=== PATIENT | female | born 1940 | race African-American/Black ===

== ENCOUNTER 2017-05-05 08:50 | Emergency (ER) | payer OTHER ==
[2017-05-05 09:01] VITALS: TEMP 98.4; BMI 28.5
--- NOTE | 2017-05-05 09:14 | PDOC ---
History of Present Illness <Dewey Wesley - Last Filed: 05/05/17 12:55> - General History Source: Patient Exam Limitations: No Limitations - History of Present Illness Initial Comments: 05/05/17 10:07 The patient is a 77-year-old female with a significant past medical history of diabetes, hypertension, hyperlipidemia, hypothyroidism, colon cancer and breast cancer (in remission), who presents to the emergency department with right- sided abdominal pain for one week. She states her abdominal pain is located at both the right upper and right lower quadrants. She describes her abdominal pain as moderate, intermittent, achy, and non-radiating. She states nothing alleviates or worsens the pain. She reports she took Aleve two days ago. She also reports she felt constipated yesterday and took milk of magnesia. She states she last had a bowel movement today. She denies any recent travel or sick contacts. The patient denies chest pain, shortness of breath, headache and dizziness. The patient denies fever, chills, nausea, vomit, diarrhea, and melena. The patient denies dysuria, frequency, urgency and hematuria. Allergies: penicillins and IV dye Past Surgical History: hysterectomy, colon resection, left thyroidectomy, ovarian cyst removal Social History: No toxic habits reported PCP: Dr. Gregorio Patel <Betzaida Tillman - Last Filed: 05/05/17 13:23> - General Chief Complaint: Pain, Acute Stated Complaint: RT SIDE PAIN Time Seen by Provider: 05/05/17 09:13 Past History - Past Medical History Asthma: Yes COPD: No Diabetes: Yes GI Disorders: Yes (COLON CA) HTN: Yes - Surgical History GI Surgery: Yes (COLON RESECTION) - Immunization History Immunization Up to Date: Yes - Suicide/Smoking/Psychosocial Hx Smoking History: Former smoker Have you smoked in the past 12 months: No Number of Cigarettes Smoked Daily: 0 If you are a former smoker, when did you quit?: 1976 Information on smoking cessation initiated: No Hx Alcohol Use: No Drug/Substance Use Hx: No Substance Use Type: None <MaryjaneDewey - Last Filed: 05/05/17 12:55> <Betzaida Tillman - Last Filed: 05/05/17 13:23> - Past Medical History Allergies/Adverse Reactions: Allergies Allergy/AdvReac Type Severity Reaction Status Date / Time Iodinated Contrast- Oral and Allergy Verified 05/05/17 10:02 IV Dye Penicillins Allergy Difficulty Verified 05/05/17 08:57 Breathing iv dye Allergy Intermediate Difficulty Uncoded 05/05/17 08:57 Breathing Home Medications: Ambulatory Orders Budesonide/Formeterol Fumarate [SYMBICORT 160/4.5mcg -] 1 inh PO BID 01/12/16 Levothyroxine [Synthroid -] 50 mcg PO DAILY 01/12/16 Loratadine [Claritin] 10 mg PO DAILY 01/12/16 Losartan/Hydrochlorothiazide [Losartan-Hctz 50-12.5 mg Tab] 1 each PO DAILY Dexlansoprazole [Dexilant] 60 mg PO DAILY 05/05/17 Ezetimibe [Zetia] 10 mg PO HS 05/05/17 Sitagliptin Phos/Metformin HCl [Janumet 50-1,000 mg Tablet] 1 each PO BID Review of Systems - Review of Systems Able to Perform ROS?: Yes Comments:: 05/05/17 10:07 A complete review of 10 out of 10 review of systems is taken and is negative apart from what is previously mentioned below and in the HPI. <Betzaida Tillman - Last Filed: 05/05/17 13:23> *Physical Exam - Vital Signs Last Vital Signs Temp Pulse Resp BP Pulse Ox 98.4 F 71 18 152/74 100 05/05/17 08:57 05/05/17 08:57 05/05/17 08:57 05/05/17 08:57 05/05/17 08:57 <Dewey Wesley - Last Filed: 05/05/17 12:55> - Vital Signs Last Vital Signs Temp Pulse Resp BP Pulse Ox 98.4 F 71 18 152/74 100 05/05/17 08:57 05/05/17 08:57 05/05/17 08:57 05/05/17 08:57 05/05/17 08:57 - Physical Exam Comments: 05/05/17 10:07 Vitals: Triage Vital signs reviewed General Appearance: no acute distress, well nourished well developed, Head: Atraumatic, normocephalic Eyes: Pupils equal reactive round, extraocular movement intact Cardiac: Regular rate and rhythm, no murmurs, no rubs, no gallops, Lungs: Clear to auscultation bilateral, good air movement bilaterally, Abdomen: Soft, nondistended, normal bowel sounds, (+) Right upper and lower quadrants tender to palpation Extremities: Full range of motion to all extremities, no cyanosis, clubbing, or edema Skin: Warm and dry, no rashes or lesions, no petechiae Psych: normal mood, normal affect <Betzaida Tillman - Last Filed: 05/05/17 13:23> ED Treatment Course - LABORATORY CBC & Chemistry Diagram: 05/05/17 09:30 05/05/17 09:30 <Dewey Wesley - Last Filed: 05/05/17 12:55> - LABORATORY CBC & Chemistry Diagram: 05/05/17 09:30 05/05/17 09:30 - ADDITIONAL ORDERS Additional order review: 05/05/17 09:30 RBC 3.92 MCV 90.6 MCHC 34.6 RDW 13.3 MPV 7.4 L D Neutrophils % 53.4 Lymphocytes % 33.8 Monocytes % 11.6 H Eosinophils % 0.4 Basophils % 0.8 - Medications Given in the ED: ED Medications Discontinued Medications Generic Name Dose Route Start Last Admin Trade Name Freq PRN Reason Stop Dose Admin Acetaminophen 1,000 mg 05/05/17 09:43 05/05/17 10:01 Ofirmev Injection - IVPB 05/05/17 09:44 1,000 mg ONCE ONE Administration Sodium Chloride 1,000 ml 05/05/17 09:43 05/05/17 10:01 Normal Saline - IV 05/05/17 09:44 1,000 ml ONCE ONE Administration <Betzaida Tillman - Last Filed: 05/05/17 13:23> Medical Decision Making - Medical Decision Making 77 years old past medical history significant for hypertension and high cholesterol diabetes, colon cancer, breast cancer who presents to the emergency department with 1 week history of colicky right-sided abdominal discomfort Diffuse right-sided abdominal discomfort on examination We'll check labs CT and reevaluate Reevaluation 1pm Belly pain impoved Well-appearing no apparent distress no acute findings on CAT scan or ultrasound. Patient noted to be slightly hyponatremic she was given 1 L normal saline I discussed these findings with Dr. Steven covering for , will arrange for repeat blood work in 1-2 days Given 5 day history of intermittent symptoms with no fever no white count and no findings on ultrasound and CAT scan low suspicious for acute surgical intra- abdominal process. Findings, the need for follow-up, strict return instructions discussed with patient. 05/05/17 13:03 <Dewey Wesley - Last Filed: 05/05/17 12:55> - Medical Decision Making 05/05/17 12:47 Re-evaluation- Patient states she is feeling better. 05/05/17 13:22 Dr. Steven (on behalf of Dr. Gregorio Patel) was paged at 12:58pm, and page was returned at 1:19pm. Case was discussed with Dr. Steven. <Betzaida Tillman - Last Filed: 05/05/17 13:23> *DC/Admit/Observation/Transfer - Discharge Dispostion Admit: No <Dewey Wesley - Last Filed: 05/05/17 12:55> - Attestations Scribe Attestion: 05/05/17 10:07 Documentation prepared by Betzaida Tillman, acting as medical clinic manager for Dewey Wesley MD, /DO. <Betzaida Tillman - Last Filed: 05/05/17 13:23> Diagnosis at time of Disposition: Abdominal pain Qualifiers: Abdominal location: generalized Qualified Code(s): R10.84 - Generalized abdominal pain - Discharge Dispostion Disposition: HOME - Referrals Referrals: Gregorio Patel MD [Primary Care Provider] - - Patient Instructions Printed Discharge Instructions: DI for Abdominal Pain-Adult
[2017-05-05] MEDS ORDERED: ACETAMINOPHEN 1000 MG/100 ML VIAL (NON FORMULARY) IVPB ONE (09:43)
[2017-05-05] MEDS ORDERED: SODIUM CHLORIDE 0.9% 1000 ML INFUS.BAG IV ONE (09:43)
[2017-05-05 09:44] LABS: BASO % 0.8 % (0-2.0); EOS % 0.4 % (0-4.5); HEMATOCRIT 35.5 % (32.4-45.2); HEMOGLOBIN 12.3 GM/dL (10.7-15.3); LYMPH % 33.8 % (8-40); MCH 31.3 pg (25.7-33.7); MCHC 34.6 g/dl (32.0-36.0); MEAN CELL VOLUME 90.6 fl (80-96); MEAN PLT VOLUME 7.4 fl (7.5-11.1); MONO % 11.6 % (3.8-10.2); NEUT % 53.4 % (42.8-82.8); PLATELET COUNT 248 K/MM3 (134-434); RBC 3.92 M/mm3 (3.60-5.2); RDW 13.3 % (11.6-15.6); WHITE BLOOD COUNT 4.5 K/mm3 (4.0-10.0)
[2017-05-05] MEDS ORDERED: ACETAMINOPHEN INJECTION 100 ML IVPB ONE (09:56)
[2017-05-05 10:07] LABS: ALBUMIN 3.9 g/dl (3.4-5.0); ALK PHOS 65 U/L (45-117); ANION GAP 9 (8-16); BILIRUBIN,TOTAL 0.7 mg/dL (0.2-1.0); BLOOD UREA NITROGEN 12 mg/dL (7-18); CALCIUM 8.2 mg/dL (8.5-10.1); CHLORIDE 92 mmol/L (98-107); CO2 28 mmol/L (21-32); CREATININE 0.9 mg/dL (0.55-1.02); GLUCOSE,RANDOM 159 mg/dL (74-106); POTASSIUM 3.9 mmol/L (3.5-5.1); SGOT/AST 26 U/L (15-37); SGPT/ALT 29 U/L (12-78); SODIUM 129 mmol/L (136-145); TOT PROT 7.7 g/dl (6.4-8.2)
[2017-05-05 11:10] LABS: URINE APPEARANCE CLEAR; URINE BILIRUBIN NEGATIVE (NEGATIVE); URINE BLOOD NEGATIVE (NEGATIVE); URINE COLOR LTYELLOW; URINE GLUCOSE (UA) 1+ (NEGATIVE); URINE KETONE NEGATIVE (NEGATIVE); URINE LEUK ESTERASE NEGATIVE (NEGATIVE); URINE NITRITE NEGATIVE (NEGATIVE); URINE PROTEIN NEGATIVE (NEGATIVE); URINE UROBILINOGEN NEGATIVE mg/dL (0.2-1.0)
[2017-05-05 12:50] VITALS: BP 141/68; PULSE 75
== END 2017-05-05 13:13 | disposition home or self-care (01) ==
LOC: JER 08:50
PROC: 3E033NZ Introduction of Analgesics, Hypnotics, Sedatives into Peripheral Vein, Percutaneous Approach (ICD-10-PCS; principal; 2017-05-05)
DX: R10.84 Generalized abdominal pain (principal); I10 Essential (primary) hypertension; E11.9 Type 2 diabetes mellitus without complications; Z79.84 Long term (current) use of oral hypoglycemic drugs; E78.00 Pure hypercholesterolemia, unspecified; Z85.3 Personal history of malignant neoplasm of breast; Z85.038 Personal history of other malignant neoplasm of large intestine
CPT/HCPCS: 36415; 74176-TC; 76705-TC; 80053; 81003; 83605; 85025; 87086; 96374; 99282-25; J0131; J7030

== ENCOUNTER 2017-07-14 06:35 | Day surgery (SDC) | payer OTHER ==
[2017-07-10 17:28] VITALS: BMI 26.6
[2017-07-14] MEDS ORDERED: BUPIVACAINE HCL/PF 0.5% (5MG/ML) 10 ML VIAL ONE (09:25)
--- NOTE | 2017-07-14 09:33 | HP ---
[facility] - Chief Complaint Chief Complaint: Right inguinal hernia/groin pain History of Present Illness: Right inguinal hernia with pain Limitations to Obtaining History: No Limitations - Past Medical History Allergies/Adverse Reactions: Allergies Allergy/AdvReac Type Severity Reaction Status Date / Time Iodinated Contrast- Oral and Allergy Intermediate Difficulty Verified 07/14/17 08:02 IV Dye Breathing Penicillins Allergy Difficulty Verified 07/14/17 08:02 Breathing iv dye Allergy Intermediate Difficulty Uncoded 07/14/17 08:02 Breathing - Current Medications Current Medications: Home Medications Medication Instructions Recorded Budesonide/Formeterol Fumarate 1 inh PO BID 01/12/16 [SYMBICORT 160/4.5mcg -] Levothyroxine [Synthroid -] 50 mcg PO DAILY 01/12/16 Loratadine [Claritin] 10 mg PO DAILY 01/12/16 Losartan/Hydrochlorothiazide 1 each PO DAILY 01/12/16 [Losartan-Hctz 50-12.5 mg Tab] Dexlansoprazole [Dexilant] 60 mg PO DAILY 05/05/17 Ezetimibe [Zetia] 10 mg PO HS 05/05/17 Sitagliptin Phos/Metformin HCl 1 each PO BID 05/05/17 [Janumet 50-1,000 mg Tablet] Satellite Physical Exam - Physical Examination Vital Signs: Vital Signs Period Temp Pulse Resp BP Sys/Jones Pulse Ox Last 24 Hr 98.4 F 76 18 155/74 98 General Appearance: Alert & Oriented x3 Lung: Clear to auscultation Heart: Regular rate & rhythm Abdomen: Soft, Other (Right inguinal hernia) Neurological: Alert, Oriented Satellite Impression/Plan - Impression/Plan Impression: Right inguinal hernia Operative Procedure: Robotic possible open right inguinal hernia repair with mesh Date to be Performed: 07/14/17
[2017-07-14] MEDS ORDERED: PROPOFOL 20 ML ONE (09:43)
[2017-07-14] MEDS ORDERED: fentaNYL CITRATE 250 MCG/5 ML VIAL ONE (09:43)
[2017-07-14] MEDS ORDERED: ROCURONIUM BROMIDE 50 MG/5 ML VIAL ONE (09:43)
[2017-07-14] MEDS ORDERED: CLINDAMYCIN 600 MG PREMIX BAG IVPB ONE (10:00)
[2017-07-14] MEDS ORDERED: LIDOCAINE HCL/PF 2% SDV 5ML VIAL ONE (10:09)
[2017-07-14] MEDS ORDERED: KETOROLAC TROMETHAMINE 30 MG/1 ML VIAL ONE (10:09)
[2017-07-14] MEDS ORDERED: DEXAMETHASONE SOD PHOSPHATE 4 MG/1 ML VIAL ONE (10:09)
[2017-07-14] MEDS ORDERED: CLINDAMYCIN PHOSPHATE 600 MG/4 ML VIAL ONE (10:09)
[2017-07-14] MEDS ORDERED: LABETALOL HCL 5 MG/1 ML (100MG/20 ML VIAL) ONE (11:35)
[2017-07-14] MEDS ORDERED: DESFLURANE GAS 240 ML BOTTLE IH ONE (11:35)
[2017-07-14] MEDS ORDERED: BUPIVACAINE HCL/PF 0.5% (5MG/ML) 10 ML VIAL IJ ONE (11:45)
[2017-07-14] MEDS ORDERED: GLYCOPYRROLATE 0.2 MG/1 ML VIAL ONE ×2 (12:26)
[2017-07-14] MEDS ORDERED: NEOSTIGMINE METHYLSULFATE 0.5 MG/ML - 10 ML MDV ONE (12:26)
[2017-07-14] MEDS ORDERED: PROMETHAZINE HCL 25 MG/1 ML VIAL IVPUSH PRN (12:53)
[2017-07-14] MEDS ORDERED: ONDANSETRON 4 MG/2 ML VIAL IVPUSH PRN ×2 (12:53→19:00)
[2017-07-14] MEDS ORDERED: oxyCODONE HCL 5 MG TABLET PO PRN (12:53)
[2017-07-14] MEDS ORDERED: LACTATED RINGERS SOLUTION 1,000 ML IV SCH (13:00)
--- NOTE | 2017-07-14 13:14 | OP ---
Operative Note - Note: Operative Date: 07/14/17 Pre-Operative Diagnosis: right inguinal hernia Operation: laparoscopy, open repair of right inguinal hernia, lysis of adhesion Surgeon: Drew High Hydraulic Strainer Operator: Steven Huggins Anesthesiologist/BRICK CHIMNEY SUPERVISOR: Seth Gilbert Anesthesia: General Estimated Blood Loss (mls): 20 Drains, Volume Out (mls): 1,000 (deras) Fluid Volume Replaced (mls): 1,300 Operative Report Dictated: Yes
[2017-07-14] MEDS ORDERED: PROMETHAZINE HCL 25 MG/1 ML VIAL ONE (13:48)
[2017-07-14] MEDS ORDERED: ACETAMINOPHEN 325 MG TABLET (FP) PO PRN (14:28)
[2017-07-14] MEDS ORDERED: DEXTROSE 5%-0.45% SALINE 1,000 ML IV SCH (14:30)
[2017-07-14] MEDS ORDERED: PT OWN MED DRAWER 7, Y5N ONE ×3 (17:41→19:23)
[2017-07-14] MEDS: metFORMIN HCL 500 MG TABLET (FP) PO SCH ×2 (17:42→17:52)
[2017-07-14] MEDS: sitaGLIPtin PHOSPHATE 50 MG TABLET PO SCH (17:49)
[2017-07-14] MEDS ORDERED: EZETIMIBE 10 MG TABLET (FP) PO SCH (22:00)
[2017-07-14] MEDS ORDERED: PATIENT'S OWN MEDICATION (NON-FORMULARY) (Sitagliptin Phos/Metformin Hcl [Janumet 50-1,000 PO SCH (22:00)
[2017-07-14] MEDS: BUDESONIDE/FORMETEROL FUMARATE 160/4.5 mcg INHALER IH SCH (22:29)
--- NOTE | 2017-07-14 23:22 | OP ---
DATE OF OPERATION: 07/14/2017 SURGEON: Drew High M.D. DRY KILN LOADER: Olivia Petersen, Steven Huggins M.D. PREOPERATIVE DIAGNOSIS: Right inguinal hernia. POSTOPERATIVE DIAGNOSIS: Right inguinal hernia with intraabdominal adhesions. PROCEDURE: 1. Diagnostic laparoscopy. 2. Open right inguinal hernia repaired with Progrip mesh. 3. Lysis of adhesions. ESTIMATED BLOOD LOSS: 5 mL. DRAINS: None. ANESTHESIA: GET. DRAINS: None. CATHETER: Shaw. REASON FOR THE PROCEDURE: This is a 77-year-old lady who presents to the office with right groin pain in her right inguinal region. On exam, this was consistent with a right inguinal hernia. Because of her pain, she desired repair. The different options were explained, and she wanted to proceed with a robotic, possible open repair of her right inguinal hernia with mesh. The risks and benefits of the procedure were explained, these included bleeding, infection, recurrence of hernia, TN, DVT, PE, injury to surrounding structure including colon, small bowel, bladder, round ligament, uterus, vessel injury, nerve injury, nerve entrapment, hematoma, seroma, wound dehiscence, as some of the complications. She understood and signed informed consent. DESCRIPTION OF PROCEDURE: Patient was placed supine on the operating room table. She underwent endotracheal intubation. A Shaw catheter was inserted. The area was prepped and draped in sterile fashion. Timeout was performed. Because of her previous midline incision from prior operation, an incision was made in the subcostal region and a Veress needle was inserted. It was explained to the patient there was a high chance of converting to an open procedure because of her previous midline incision and likelihood of dense intraabdominal adhesions, which she did understand. Pneumoperitoneum was insufflated and the Veress needle was removed. A 5-mm Optiview trocar was placed under direct visualization. Entrance was obtained to the abdominal cavity. However, there were noted to be dense intraabdominal adhesions. These were carefully attempted to take down with the laparoscope, but there was inadequate visualization of the abdominal cavity. Any further trocars were unable to be placed. Because of this, the laparoscopic robotic approach was aborted. The open right inguinal hernia approach was then performed. The pubis and anterior superior iliac spine were identified and an incision was made over the level of the hernia defect. The skin and subcutaneous tissue were dissected down to the level of Enedina's fascia. Enedina's fascia was divided, and the external oblique was identified. The external oblique was incised and opened. The internal oblique and transversalis fascia were then opened as well. Dissection was performed and there was noted to be a weakness in the entire region of her inguinal canal. There was an area of peritoneum that was noted to be bulging within this canal as well. For further inspection, the peritoneum was opened, and small bowel noted to be present. There were extensive adhesions from bowel to bowel as well as bowel to the overlying peritoneum. These adhesions were carefully lysed and taken down in order to mobilize the bowel towards the abdominal cavity. Once this was performed, the peritoneum was closed using a 2-0 Vicryl suture. Dissection was again further performed. The epigastric vessels were identified as well as the pubis, the shelving edge, and the conjoined tendon. A direct hernia was noted and carefully reduced. Dr. Steven Huggins was consulted intraoperatively for assistance as well at this point. A Progrip mesh was chosen and used to repair the hernia defect. The mesh was secured to the pubis bone, the conjoined tendon and the underlying ligament with 2.0 prolene suture. The mesh was noted to be in good position, and the hernia was noted to be adequately repaired. The external oblique was then sutured using a 0 Vicryl suture. Hemostasis was noted, and the wound was irrigated. The deep subcutaneous tissue was closed using 2-0 Vicryl suture, and the superficial subcutaneous tissue was closed using 3-0 Vicryl suture. The skin was closed in subcutaneous fashion with 4-0 Biosyn suture. Sterile dressings were applied. The patient tolerated the procedure well. The Shaw was removed at the end of the case. Description of the findings were explained to the family as well as the patient, and they understood the description and the event of the procedure. Vee REIS/[id number] KAMILA
[2017-07-15] MEDS: metFORMIN HCL 500 MG TABLET (FP) PO SCH (06:47)
[2017-07-15] MEDS: sitaGLIPtin PHOSPHATE 50 MG TABLET PO SCH (06:47)
[2017-07-15] MEDS ORDERED: LEVOTHYROXINE NA 50 MCG TABLET (FP) PO SCH (07:00)
[2017-07-15 08:47] LABS: BASO % 0.3 % (0-2.0); EOS % 0.4 % (0-4.5); HEMATOCRIT 30.3 % (32.4-45.2); HEMOGLOBIN 10.1 GM/dL (10.7-15.3); LYMPH % 38.2 % (8-40); MCHC 33.5 g/dl (32.0-36.0); MEAN CELL VOLUME 92.5 fl (80-96); MEAN PLT VOLUME 8.6 fl (7.5-11.1); MONO % 14.8 % (3.8-10.2); NEUT % 46.3 % (42.8-82.8); PLATELET COUNT 213 K/MM3 (134-434); RBC 3.28 M/mm3 (3.60-5.2); RDW 13.5 % (11.6-15.6); WHITE BLOOD COUNT 4.9 K/mm3 (4.0-10.0)
[2017-07-15] MEDS ORDERED: LOSARTAN 50MG/HCTZ 12.5MG 1 TAB (FP) PO SCH (10:00)
[2017-07-15] MEDS ORDERED: LORATADINE 10 MG TABLET PO SCH (10:00)
[2017-07-15] MEDS ORDERED: PANTOPRAZOLE 40 MG TABLET (FP) PO SCH (10:00)
--- NOTE | 2017-07-15 10:25 | PN ---
Progress Note (short form) - Note Progress Note: POD 1 Pain controlled Tolerating diet Vital Signs Period Temp Pulse Resp BP Sys/Jones Pulse Ox Last 24 Hr 97.6 F-99.4 F 81-103 14-21 127-164/62-86 98-100 Abd soft, ND, wound clean, dry CBC, BMP 07/15/17 07:55 Doing well Discharge home
--- NOTE | 2017-07-15 10:28 | PN ---
Progress Note (short form) - Note Progress Note: 77yo F s/p open Rt inguinal hernia repair, pt sitting comfortably in bed. Pt denies n/v, fever, chills. Tolerating soft diet. Pt urinating well and ambulating. Pt passed flatus last night. Complains of some mild abd pain. Last Vital Signs Temp Pulse Resp BP Pulse Ox 99.4 F 100 H 20 129/67 100 07/15/17 06:50 07/15/17 06:50 07/15/17 06:50 07/15/17 06:50 07/14/17 21:00 CBC, BMP 07/15/17 07:55 PE: General: A&O X 3 Resp: breathing comfortably Abd: soft, nondistended, mild tenderness RLQ, dressings in place with no drainage or erythema. Ext: no edema Problem List - Problems (1) Right inguinal hernia Assessment/Plan: Plan: -advance diet -pain control -DVT ppx -early ambulation -plan to discharge Code(s): K40.90 - UNIL INGUINAL HERNIA, W/O OBST OR GANGR, NOT SPCF RECUR
[2017-07-15 11:03] VITALS: BP 154/74; PULSE 98; TEMP 98.3
[2017-07-15] MEDS: BUDESONIDE/FORMETEROL FUMARATE 160/4.5 mcg INHALER IH SCH (11:19)
== END 2017-07-15 12:06 | disposition home or self-care (01) ==
LOC: JASUSAT 06:35 → JASU-SURG 06:35 → J6S 15:17 → JASUSAT 07-15 12:06
PROVIDERS: ATTEND Surgery
PROC: 0WJG4ZZ Inspection of Peritoneal Cavity, Percutaneous Endoscopic Approach (ICD-10-PCS; 2017-07-14)
PROC: 0YU50JZ Supplement Right Inguinal Region with Synthetic Substitute, Open Approach (ICD-10-PCS; principal; 2017-07-14 09:00)
DX: K40.90 Unilateral inguinal hernia, without obstruction or gangrene, not specified as recurrent (principal); Z53.31 Laparoscopic surgical procedure converted to open procedure
CPT/HCPCS: 36415; 74018-TC-FY; 82962; 85025; 94010; 94760

== ENCOUNTER 2020-07-12 21:04 | Emergency (ER) | payer OTHER ==
[2020-07-12 21:30] VITALS: BP 172/82; PULSE 72; TEMP 98.4; BMI 28.8
[2020-07-12] MEDS ORDERED: ACETAMINOPHEN 1000 MG/100 ML VIAL (NON FORMULARY) IVPB ONE (22:13)
[2020-07-12] MEDS ORDERED: ACETAMINOPHEN INJECTION 100 ML IVPB ONE (22:29)
[2020-07-12 22:34] LABS: BASO % 1.1 % (0-2.0); EOS % 0.2 % (0-4.5); HEMATOCRIT 34.9 % (32.4-45.2); HEMOGLOBIN 11.9 GM/dL (10.7-15.3); LYMPH % 22.4 % (8-40); MCH 30.6 pg (25.7-33.7); MCHC 34.2 g/dl (32.0-36.0); MEAN CELL VOLUME 89.4 fl (80-96); MEAN PLT VOLUME 8.3 fl (7.5-11.1); NEUT % 67.3 % (42.8-82.8); PLATELET COUNT 264 K/MM3 (134-434); RDW 13.9 % (11.6-15.6); WHITE BLOOD COUNT 5.2 K/mm3 (4.0-10.0)
[2020-07-12 22:44] LABS: INR 0.97 (0.83-1.09); PROTHROMBIN TIME (PATIENT) 11.9 SEC (9.7-13.0)
[2020-07-12 22:46] LABS: ACTIVATED PTT 26.1 SECONDS (25.2-36.5)
[2020-07-12 23:01] LABS: CALCIUM 8.8 mg/dL (8.5-10.1)
[2020-07-12 23:02] LABS: ALBUMIN 4.2 g/dl (3.4-5.0); BLOOD UREA NITROGEN 13.4 mg/dL (7-18); MAGNESIUM 1.9 mg/dL (1.8-2.4)
[2020-07-12 23:07] LABS: BILIRUBIN,TOTAL 0.4 mg/dL (0.2-1); TOT PROT 7.7 g/dl (6.4-8.2)
[2020-07-12] MEDS ORDERED: morphine CARPU-JECT 4 MG/1 ML DISP.SYRIN IVPUSH ONE (23:16)
[2020-07-12] MEDS ORDERED: SODIUM CHLORIDE 0.9% 500 ML INFUS.BAG IV ONE (23:17)
[2020-07-12] MEDS ORDERED: morphine SULFATE 4 MG/ML VIAL ONE (23:32)
[2020-07-13] MEDS ORDERED: METOCLOPRAMIDE HCL INJECTION 10 MG/2 ML VIAL IVPB ONE (00:20)
[2020-07-13] MEDS ORDERED: METOCLOPRAMIDE HCL INJECTION 10 MG/2 ML VIAL ONE (00:23)
[2020-07-13 01:57] LABS: PH,URINE 6.5 (5.0-8.0); URINE APPEARANCE CLEAR; URINE BILIRUBIN NEGATIVE (NEGATIVE); URINE COLOR YELLOW; URINE GLUCOSE (UA) 2+ (NEGATIVE); URINE KETONE NEGATIVE (NEGATIVE); URINE LEUK ESTERASE NEGATIVE (NEGATIVE); URINE NITRITE NEGATIVE (NEGATIVE); URINE PROTEIN TRACE (NEGATIVE); URINE UROBILINOGEN 0.2 mg/dL (0.2-1.0)
== END 2020-07-13 02:39 | disposition home or self-care (01) ==
LOC: JER 21:04
PROC: 3E033NZ Introduction of Analgesics, Hypnotics, Sedatives into Peripheral Vein, Percutaneous Approach (ICD-10-PCS; principal; 2020-07-12)
PROC: 3E033GC Introduction of Other Therapeutic Substance into Peripheral Vein, Percutaneous Approach (ICD-10-PCS; 2020-07-12)
DX: R10.32 Left lower quadrant pain (principal)
CPT/HCPCS: 36415; 74176-TC; 80053; 81003; 83605; 83735; 85025; 85610; 85730; 99285-25; J0131

== ENCOUNTER 2021-09-26 11:44 | Inpatient (IN) | payer OTHER ==
[2021-09-26 12:08] VITALS: BMI 27.3
[2021-09-26 13:34] LABS: BASO % 0.6 % (0-2.0); HEMATOCRIT 33.5 % (32.4-45.2); HEMOGLOBIN 11.2 GM/dL (10.7-15.3); LYMPH % 10.5 % (8-40); MCHC 33.4 g/dl (32.0-36.0); MEAN CELL VOLUME 86.9 fl (80-96); MEAN PLT VOLUME 6.8 fl (7.5-11.1); NEUT % 78.9 % (42.8-82.8); PLATELET COUNT 557 10^3/uL (134-434); RBC 3.86 M/mm3 (3.60-5.2); RDW 14.4 % (11.6-15.6); WHITE BLOOD COUNT 6.5 K/mm3 (4.0-10.0)
[2021-09-26 13:41] LABS: CALCIUM 9.6 mg/dL (8.5-10.1)
[2021-09-26 13:42] LABS: ALBUMIN 2.9 g/dl (3.4-5.0); BLOOD UREA NITROGEN 22.3 mg/dL (7-18)
[2021-09-26 13:46] LABS: BILIRUBIN,TOTAL 0.6 mg/dL (0.2-1)
[2021-09-26 13:47] LABS: TOT PROT 7.2 g/dl (6.4-8.2)
[2021-09-26 14:01] LABS: LACTIC ACID 2.2 mmol/L (0.4-2.0)
[2021-09-26] MEDS ORDERED: SODIUM CHLORIDE 0.9% 500 ML INFUS.BAG IV ONE (18:28)
[2021-09-26 18:48] LABS: BF WBC & OTHER NUCLEATED CELLS 2705 /mm3
[2021-09-26 18:49] LABS: BODY FLUID MACROPHAGES 4 %; BODY FLUID MESOTHELIAL 1 %; BODY FLUID MONOCYTE 6 %
[2021-09-26 22:01] LABS: INR 1.31 (0.83-1.09); PROTHROMBIN TIME (PATIENT) 15.1 SEC (9.7-13.0)
[2021-09-26] MEDS: HEPARIN NA (PORCINE) 5,000 UNITS/ML 1ML VIAL SQ SCH (23:07)
[2021-09-26] MEDS: DOCUSATE SODIUM 100 MG CAPSULE (FP) PO SCH (23:07)
[2021-09-26] MEDS: EZETIMIBE 10 MG TABLET (FP) PO SCH (23:07)
[2021-09-27] MEDS: LEVOTHYROXINE NA 50 MCG TABLET (FP) PO SCH (06:12)
[2021-09-27] MEDS: DOCUSATE SODIUM 100 MG CAPSULE (FP) PO SCH ×3 (06:12→21:33)
[2021-09-27] MEDS: LOSARTAN 50MG/HCTZ 12.5MG 1 TAB PO SCH (10:34)
[2021-09-27] MEDS: LORATADINE 10 MG TABLET PO SCH (10:34)
[2021-09-27] MEDS: BUDESONIDE/FORMETEROL FUMARATE 160/4.5 mcg INHALER IH SCH ×3 (10:34→21:50)
[2021-09-27] MEDS: HEPARIN NA (PORCINE) 5,000 UNITS/ML 1ML VIAL SQ SCH ×2 (10:35→21:32)
[2021-09-27 12:15] LABS: BASO % 0.4 % (0-2.0); EOS % 0.1 % (0-4.5); HEMATOCRIT 31.3 % (32.4-45.2); HEMOGLOBIN 10.7 GM/dL (10.7-15.3); LYMPH % 11.2 % (8-40); MCH 29.7 pg (25.7-33.7); MCHC 34.2 g/dl (32.0-36.0); MEAN CELL VOLUME 86.8 fl (80-96); MEAN PLT VOLUME 6.4 fl (7.5-11.1); MONO % 10.5 % (3.8-10.2); NEUT % 77.8 % (42.8-82.8); PLATELET COUNT 526 10^3/uL (134-434); WHITE BLOOD COUNT 6.8 K/mm3 (4.0-10.0)
[2021-09-27 12:52] LABS: CALCIUM 9.3 mg/dL (8.5-10.1)
[2021-09-27 12:53] LABS: ALBUMIN 2.8 g/dl (3.4-5.0); BLOOD UREA NITROGEN 16.9 mg/dL (7-18)
[2021-09-27 12:56] LABS: CREATININE 0.7 mg/dL (0.55-1.3)
[2021-09-27 12:57] LABS: BILIRUBIN,TOTAL 0.8 mg/dL (0.2-1)
[2021-09-27 12:58] LABS: TOT PROT 6.5 g/dl (6.4-8.2)
[2021-09-27] MEDS ORDERED: PANTOPRAZOLE 40 MG TABLET PO ONE (17:31)
[2021-09-27] MEDS: EZETIMIBE 10 MG TABLET (FP) PO SCH (21:33)
[2021-09-28] MEDS: DOCUSATE SODIUM 100 MG CAPSULE (FP) PO SCH ×3 (06:21→21:37)
[2021-09-28] MEDS: LEVOTHYROXINE NA 50 MCG TABLET (FP) PO SCH (06:21)
[2021-09-28 08:33] LABS: BASO % 0.6 % (0-2.0); EOS % 0.2 % (0-4.5); HEMATOCRIT 31.3 % (32.4-45.2); HEMOGLOBIN 10.6 GM/dL (10.7-15.3); LYMPH % 17.1 % (8-40); MCH 29.3 pg (25.7-33.7); MCHC 33.8 g/dl (32.0-36.0); MEAN CELL VOLUME 86.6 fl (80-96); MEAN PLT VOLUME 6.8 fl (7.5-11.1); MONO % 12.8 % (3.8-10.2); NEUT % 69.3 % (42.8-82.8); PLATELET COUNT 484 10^3/uL (134-434); RBC 3.61 M/mm3 (3.60-5.2); RDW 14.2 % (11.6-15.6); WHITE BLOOD COUNT 6.7 K/mm3 (4.0-10.0)
[2021-09-28 08:44] LABS: CALCIUM 8.6 mg/dL (8.5-10.1)
[2021-09-28 08:45] LABS: ALBUMIN 2.5 g/dl (3.4-5.0); BLOOD UREA NITROGEN 15.2 mg/dL (7-18)
[2021-09-28 08:48] LABS: CREATININE 0.7 mg/dL (0.55-1.3)
[2021-09-28 08:49] LABS: BILIRUBIN,TOTAL 0.7 mg/dL (0.2-1)
[2021-09-28 08:53] LABS: N-TERMINAL BNP 197.6 pg/ml (5-450)
[2021-09-28] MEDS: LOSARTAN 50MG/HCTZ 12.5MG 1 TAB PO SCH (09:45)
[2021-09-28] MEDS: HEPARIN NA (PORCINE) 5,000 UNITS/ML 1ML VIAL SQ SCH ×2 (09:46→21:28)
[2021-09-28] MEDS: LORATADINE 10 MG TABLET PO SCH (09:49)
[2021-09-28] MEDS: BUDESONIDE/FORMETEROL FUMARATE 160/4.5 mcg INHALER IH SCH ×2 (09:50→21:32)
[2021-09-28] MEDS: ACETAMINOPHEN 325 MG TABLET (FP) PO PRN ×2 (10:23→21:29)
[2021-09-28] MEDS: INSULIN SLIDING SCALE (NOVOLOG) 1 VIAL SQ SCH ×2 (16:30→21:55)
[2021-09-28] MEDS: EZETIMIBE 10 MG TABLET (FP) PO SCH (21:28)
[2021-09-29] MEDS: DOCUSATE SODIUM 100 MG CAPSULE (FP) PO SCH ×3 (05:34→21:41)
[2021-09-29] MEDS: INSULIN SLIDING SCALE (NOVOLOG) 1 VIAL SQ SCH ×4 (06:39→21:59)
[2021-09-29] MEDS: LEVOTHYROXINE NA 50 MCG TABLET (FP) PO SCH (06:44)
[2021-09-29 07:00] LABS: BASO % 0.4 % (0-2.0); EOS % 0.5 % (0-4.5); HEMATOCRIT 29.8 % (32.4-45.2); HEMOGLOBIN 10.1 GM/dL (10.7-15.3); LYMPH % 20.9 % (8-40); MCH 29.1 pg (25.7-33.7); MCHC 33.7 g/dl (32.0-36.0); MEAN CELL VOLUME 86.4 fl (80-96); MEAN PLT VOLUME 6.3 fl (7.5-11.1); MONO % 12.7 % (3.8-10.2); NEUT % 65.5 % (42.8-82.8); PLATELET COUNT 425 10^3/uL (134-434); RBC 3.45 M/mm3 (3.60-5.2); RDW 14.4 % (11.6-15.6)
[2021-09-29 07:30] LABS: CALCIUM 8.6 mg/dL (8.5-10.1)
[2021-09-29 07:31] LABS: ALBUMIN 2.3 g/dl (3.4-5.0); BLOOD UREA NITROGEN 12.6 mg/dL (7-18)
[2021-09-29 07:34] LABS: CREATININE 0.7 mg/dL (0.55-1.3)
[2021-09-29 07:35] LABS: BILIRUBIN,TOTAL 0.7 mg/dL (0.2-1)
[2021-09-29 07:36] LABS: TOT PROT 5.7 g/dl (6.4-8.2)
[2021-09-29] MEDS: LOSARTAN 50MG/HCTZ 12.5MG 1 TAB PO SCH (09:37)
[2021-09-29] MEDS: HEPARIN NA (PORCINE) 5,000 UNITS/ML 1ML VIAL SQ SCH ×2 (09:37→21:42)
[2021-09-29] MEDS: ACETAMINOPHEN 325 MG TABLET (FP) PO PRN (09:38)
[2021-09-29] MEDS: LORATADINE 10 MG TABLET PO SCH (09:38)
[2021-09-29] MEDS: BUDESONIDE/FORMETEROL FUMARATE 160/4.5 mcg INHALER IH SCH ×2 (09:38→21:41)
[2021-09-29] MEDS: EZETIMIBE 10 MG TABLET (FP) PO SCH (21:41)
[2021-09-30 00:11] LABS: BODY FLUID ALBUMIN 3.1 g/dL (Not Estab.)
[2021-09-30] MEDS: DOCUSATE SODIUM 100 MG CAPSULE (FP) PO SCH ×3 (06:17→21:40)
[2021-09-30] MEDS: LEVOTHYROXINE NA 50 MCG TABLET (FP) PO SCH (06:17)
[2021-09-30] MEDS: INSULIN SLIDING SCALE (NOVOLOG) 1 VIAL SQ SCH ×4 (06:35→22:10)
[2021-09-30] MEDS: LORATADINE 10 MG TABLET PO SCH (10:28)
[2021-09-30] MEDS: BUDESONIDE/FORMETEROL FUMARATE 160/4.5 mcg INHALER IH SCH ×2 (10:28→21:43)
[2021-09-30] MEDS: LOSARTAN 50MG/HCTZ 12.5MG 1 TAB PO SCH (10:28)
[2021-09-30] MEDS: HEPARIN NA (PORCINE) 5,000 UNITS/ML 1ML VIAL SQ SCH ×2 (10:29→21:41)
[2021-09-30] MEDS: ACETAMINOPHEN 325 MG TABLET (FP) PO PRN ×2 (15:50→21:40)
[2021-09-30] MEDS: EZETIMIBE 10 MG TABLET (FP) PO SCH (21:40)
[2021-10-01] MEDS: LEVOTHYROXINE NA 50 MCG TABLET (FP) PO SCH (06:15)
[2021-10-01] MEDS: DOCUSATE SODIUM 100 MG CAPSULE (FP) PO SCH ×3 (06:15→21:51)
[2021-10-01] MEDS: INSULIN SLIDING SCALE (NOVOLOG) 1 VIAL SQ SCH ×4 (06:46→21:55)
[2021-10-01] MEDS: LOSARTAN 50MG/HCTZ 12.5MG 1 TAB PO SCH (09:15)
[2021-10-01] MEDS: LORATADINE 10 MG TABLET PO SCH (09:15)
[2021-10-01] MEDS: HEPARIN NA (PORCINE) 5,000 UNITS/ML 1ML VIAL SQ SCH ×2 (09:16→21:52)
[2021-10-01] MEDS: BUDESONIDE/FORMETEROL FUMARATE 160/4.5 mcg INHALER IH SCH ×2 (09:16→21:56)
[2021-10-01 14:01] LABS: HEMATOCRIT 32.2 % (32.4-45.2); HEMOGLOBIN 10.9 GM/dL (10.7-15.3); MCH 29.3 pg (25.7-33.7); MCHC 33.9 g/dl (32.0-36.0); MEAN CELL VOLUME 86.5 fl (80-96); MEAN PLT VOLUME 6.8 fl (7.5-11.1); PLATELET COUNT 439 10^3/uL (134-434); RBC 3.72 M/mm3 (3.60-5.2); RDW 14.3 % (11.6-15.6)
[2021-10-01 14:22] LABS: CALCIUM 8.6 mg/dL (8.5-10.1)
[2021-10-01 14:23] LABS: ALBUMIN 2.1 g/dl (3.4-5.0); BLOOD UREA NITROGEN 9.2 mg/dL (7-18)
[2021-10-01 14:26] LABS: CREATININE 0.6 mg/dL (0.55-1.3)
[2021-10-01 14:27] LABS: BILIRUBIN,TOTAL 0.5 mg/dL (0.2-1); TOT PROT 5.7 g/dl (6.4-8.2)
[2021-10-01] MEDS: EZETIMIBE 10 MG TABLET (FP) PO SCH (21:52)
[2021-10-02] MEDS: INSULIN SLIDING SCALE (NOVOLOG) 1 VIAL SQ SCH ×4 (06:07→22:03)
[2021-10-02] MEDS: LEVOTHYROXINE NA 50 MCG TABLET (FP) PO SCH (06:07)
[2021-10-02] MEDS: DOCUSATE SODIUM 100 MG CAPSULE (FP) PO SCH ×3 (06:07→22:03)
[2021-10-02] MEDS: LOSARTAN 50MG/HCTZ 12.5MG 1 TAB PO SCH (10:55)
[2021-10-02] MEDS: HEPARIN NA (PORCINE) 5,000 UNITS/ML 1ML VIAL SQ SCH ×2 (10:55→22:02)
[2021-10-02] MEDS: BUDESONIDE/FORMETEROL FUMARATE 160/4.5 mcg INHALER IH SCH ×2 (10:55→22:03)
[2021-10-02] MEDS: LORATADINE 10 MG TABLET PO SCH (10:55)
[2021-10-02] MEDS ORDERED: POLYETHYLENE GLYCOL (HEALTHYLAX) 3350 17 GM PACKET PO SCH (11:30)
[2021-10-02] MEDS ORDERED: POLYETHYLENE GLYCOL (HEALTHYLAX) 3350 17 GM PACKET PO ONE (11:30)
[2021-10-02] MEDS ORDERED: MINERAL OIL ENEMA 133 ML ENEMA RC ONE (11:44)
[2021-10-02] MEDS: EZETIMIBE 10 MG TABLET (FP) PO SCH (22:03)
[2021-10-03] MEDS: LEVOTHYROXINE NA 50 MCG TABLET (FP) PO SCH (06:07)
[2021-10-03] MEDS: INSULIN SLIDING SCALE (NOVOLOG) 1 VIAL SQ SCH ×4 (06:07→21:45)
[2021-10-03] MEDS: DOCUSATE SODIUM 100 MG CAPSULE (FP) PO SCH ×3 (06:07→21:43)
[2021-10-03 08:42] LABS: BASO % 0.7 % (0-2.0); EOS % 0.4 % (0-4.5); HEMATOCRIT 28.5 % (32.4-45.2); HEMOGLOBIN 9.6 GM/dL (10.7-15.3); LYMPH % 16.9 % (8-40); MCH 29.3 pg (25.7-33.7); MCHC 33.8 g/dl (32.0-36.0); MEAN CELL VOLUME 86.7 fl (80-96); MEAN PLT VOLUME 6.9 fl (7.5-11.1); MONO % 10.5 % (3.8-10.2); NEUT % 71.5 % (42.8-82.8); PLATELET COUNT 406 10^3/uL (134-434); RBC 3.29 M/mm3 (3.60-5.2); RDW 14.3 % (11.6-15.6); WHITE BLOOD COUNT 6.4 K/mm3 (4.0-10.0)
[2021-10-03 09:21] LABS: BLOOD UREA NITROGEN 9.5 mg/dL (7-18)
[2021-10-03 09:23] LABS: CALCIUM 8.2 mg/dL (8.5-10.1)
[2021-10-03 09:27] LABS: BILIRUBIN,TOTAL 0.5 mg/dL (0.2-1); CREATININE 0.6 mg/dL (0.55-1.3); TOT PROT 5.4 g/dl (6.4-8.2)
[2021-10-03] MEDS: LOSARTAN 50MG/HCTZ 12.5MG 1 TAB PO SCH (09:50)
[2021-10-03] MEDS: HEPARIN NA (PORCINE) 5,000 UNITS/ML 1ML VIAL SQ SCH ×2 (09:50→21:43)
[2021-10-03] MEDS: LORATADINE 10 MG TABLET PO SCH (09:50)
[2021-10-03] MEDS: BUDESONIDE/FORMETEROL FUMARATE 160/4.5 mcg INHALER IH SCH ×2 (09:53→21:48)
[2021-10-03] MEDS: EZETIMIBE 10 MG TABLET (FP) PO SCH (21:48)
[2021-10-04] MEDS: DOCUSATE SODIUM 100 MG CAPSULE (FP) PO SCH ×3 (06:40→21:39)
[2021-10-04] MEDS: LEVOTHYROXINE NA 50 MCG TABLET (FP) PO SCH (06:40)
[2021-10-04] MEDS: INSULIN SLIDING SCALE (NOVOLOG) 1 VIAL SQ SCH ×4 (06:40→21:41)
[2021-10-04] MEDS: LOSARTAN 50MG/HCTZ 12.5MG 1 TAB PO SCH (09:50)
[2021-10-04] MEDS: LORATADINE 10 MG TABLET PO SCH (09:50)
[2021-10-04] MEDS: HEPARIN NA (PORCINE) 5,000 UNITS/ML 1ML VIAL SQ SCH ×2 (09:50→21:39)
[2021-10-04] MEDS: ANASTROZOLE 1 MG TABLET PO SCH (09:50)
[2021-10-04] MEDS: BUDESONIDE/FORMETEROL FUMARATE 160/4.5 mcg INHALER IH SCH ×2 (09:52→21:39)
[2021-10-04] MEDS: EZETIMIBE 10 MG TABLET (FP) PO SCH (21:39)
[2021-10-05] MEDS: LEVOTHYROXINE NA 50 MCG TABLET (FP) PO SCH (06:21)
[2021-10-05] MEDS: DOCUSATE SODIUM 100 MG CAPSULE (FP) PO SCH ×3 (06:21→21:16)
[2021-10-05] MEDS: INSULIN SLIDING SCALE (NOVOLOG) 1 VIAL SQ SCH ×4 (06:22→21:17)
[2021-10-05] MEDS: LORATADINE 10 MG TABLET PO SCH (09:18)
[2021-10-05] MEDS: HEPARIN NA (PORCINE) 5,000 UNITS/ML 1ML VIAL SQ SCH ×2 (09:18→21:16)
[2021-10-05] MEDS: LOSARTAN 50MG/HCTZ 12.5MG 1 TAB PO SCH (09:18)
[2021-10-05] MEDS: ANASTROZOLE 1 MG TABLET PO SCH (09:19)
[2021-10-05] MEDS: BUDESONIDE/FORMETEROL FUMARATE 160/4.5 mcg INHALER IH SCH ×2 (09:20→21:17)
[2021-10-05] MEDS: EZETIMIBE 10 MG TABLET (FP) PO SCH (21:16)
[2021-10-05] MEDS: SENNOSIDES 8.6MG TABLET (FP) PO PRN (21:16)
[2021-10-06] MEDS: DOCUSATE SODIUM 100 MG CAPSULE (FP) PO SCH ×3 (06:30→21:10)
[2021-10-06] MEDS: LEVOTHYROXINE NA 50 MCG TABLET (FP) PO SCH (06:30)
[2021-10-06] MEDS: INSULIN SLIDING SCALE (NOVOLOG) 1 VIAL SQ SCH ×4 (06:32→21:44)
[2021-10-06 07:19] LABS: BASO % 0.6 % (0-2.0); EOS % 0.6 % (0-4.5); HEMATOCRIT 24.9 % (32.4-45.2); HEMOGLOBIN 8.6 GM/dL (10.7-15.3); LYMPH % 17.9 % (8-40); MCH 29.6 pg (25.7-33.7); MCHC 34.4 g/dl (32.0-36.0); MEAN PLT VOLUME 6.7 fl (7.5-11.1); MONO % 12.5 % (3.8-10.2); NEUT % 68.4 % (42.8-82.8); PLATELET COUNT 394 10^3/uL (134-434); RBC 2.89 M/mm3 (3.60-5.2); RDW 14.4 % (11.6-15.6)
[2021-10-06 07:32] LABS: ALBUMIN 1.8 g/dl (3.4-5.0); BLOOD UREA NITROGEN 8.4 mg/dL (7-18); CALCIUM 8.1 mg/dL (8.5-10.1)
[2021-10-06 07:35] LABS: CREATININE 0.5 mg/dL (0.55-1.3)
[2021-10-06 07:36] LABS: BILIRUBIN,TOTAL 0.6 mg/dL (0.2-1)
[2021-10-06 07:37] LABS: TOT PROT 5.2 g/dl (6.4-8.2)
[2021-10-06] MEDS: BUDESONIDE/FORMETEROL FUMARATE 160/4.5 mcg INHALER IH SCH ×2 (09:09→21:10)
[2021-10-06] MEDS: ASPIRIN COATED 81 MG TABLET.EC PO SCH (09:48)
[2021-10-06] MEDS: SENNOSIDES 8.6MG TABLET (FP) PO PRN (09:49)
[2021-10-06] MEDS: LORATADINE 10 MG TABLET PO SCH (09:49)
[2021-10-06] MEDS: LOSARTAN 50MG/HCTZ 12.5MG 1 TAB PO SCH (09:49)
[2021-10-06] MEDS: ANASTROZOLE 1 MG TABLET PO SCH (09:49)
[2021-10-06] MEDS: HEPARIN NA (PORCINE) 5,000 UNITS/ML 1ML VIAL SQ SCH ×2 (09:49→21:09)
[2021-10-06] MEDS: metoPROLOL SUCCINATE 25 MG TAB.SR.24H (FP) PO SCH (09:51)
[2021-10-06] MEDS: EZETIMIBE 10 MG TABLET (FP) PO SCH (21:10)
[2021-10-06] MEDS: ACETAMINOPHEN 325 MG TABLET (FP) PO PRN (21:12)
[2021-10-07] MEDS: DOCUSATE SODIUM 100 MG CAPSULE (FP) PO SCH ×3 (06:50→21:11)
[2021-10-07] MEDS: INSULIN SLIDING SCALE (NOVOLOG) 1 VIAL SQ SCH ×4 (06:51→21:11)
[2021-10-07] MEDS: LEVOTHYROXINE NA 50 MCG TABLET (FP) PO SCH (06:51)
[2021-10-07] MEDS: metoPROLOL SUCCINATE 25 MG TAB.SR.24H (FP) PO SCH (09:23)
[2021-10-07] MEDS: LORATADINE 10 MG TABLET PO SCH (09:23)
[2021-10-07] MEDS: LOSARTAN 50MG/HCTZ 12.5MG 1 TAB PO SCH (09:23)
[2021-10-07] MEDS: BUDESONIDE/FORMETEROL FUMARATE 160/4.5 mcg INHALER IH SCH ×2 (09:23→21:13)
[2021-10-07] MEDS: ASPIRIN COATED 81 MG TABLET.EC PO SCH (09:23)
[2021-10-07] MEDS: ANASTROZOLE 1 MG TABLET PO SCH (09:23)
[2021-10-07] MEDS: HEPARIN NA (PORCINE) 5,000 UNITS/ML 1ML VIAL SQ SCH ×2 (09:24→21:11)
[2021-10-07] MEDS: EZETIMIBE 10 MG TABLET (FP) PO SCH (21:11)
[2021-10-08] MEDS: INSULIN SLIDING SCALE (NOVOLOG) 1 VIAL SQ SCH ×4 (06:23→21:48)
[2021-10-08] MEDS: DOCUSATE SODIUM 100 MG CAPSULE (FP) PO SCH ×3 (06:23→21:27)
[2021-10-08] MEDS: LEVOTHYROXINE NA 50 MCG TABLET (FP) PO SCH (06:23)
[2021-10-08 07:32] LABS: BASO % 0.6 % (0-2.0); EOS % 1.1 % (0-4.5); HEMATOCRIT 25.3 % (32.4-45.2); HEMOGLOBIN 8.8 GM/dL (10.7-15.3); LYMPH % 15.1 % (8-40); MCHC 34.7 g/dl (32.0-36.0); MEAN CELL VOLUME 86.5 fl (80-96); MEAN PLT VOLUME 6.8 fl (7.5-11.1); MONO % 10.1 % (3.8-10.2); NEUT % 73.1 % (42.8-82.8); PLATELET COUNT 483 10^3/uL (134-434); RBC 2.93 M/mm3 (3.60-5.2); RDW 14.1 % (11.6-15.6); WHITE BLOOD COUNT 6.3 K/mm3 (4.0-10.0)
[2021-10-08 07:46] LABS: CALCIUM 8.2 mg/dL (8.5-10.1)
[2021-10-08 07:47] LABS: ALBUMIN 1.8 g/dl (3.4-5.0)
[2021-10-08 07:48] LABS: BLOOD UREA NITROGEN 8.9 mg/dL (7-18)
[2021-10-08 07:51] LABS: CREATININE 0.5 mg/dL (0.55-1.3)
[2021-10-08 07:52] LABS: BILIRUBIN,TOTAL 0.6 mg/dL (0.2-1); TOT PROT 5.5 g/dl (6.4-8.2)
[2021-10-08] MEDS: ANASTROZOLE 1 MG TABLET PO SCH (10:09)
[2021-10-08] MEDS: metoPROLOL SUCCINATE 25 MG TAB.SR.24H (FP) PO SCH (10:09)
[2021-10-08] MEDS: LORATADINE 10 MG TABLET PO SCH (10:10)
[2021-10-08] MEDS: HEPARIN NA (PORCINE) 5,000 UNITS/ML 1ML VIAL SQ SCH ×2 (10:10→21:27)
[2021-10-08] MEDS: LOSARTAN 50MG/HCTZ 12.5MG 1 TAB PO SCH (10:10)
[2021-10-08] MEDS: ASPIRIN COATED 81 MG TABLET.EC PO SCH (10:10)
[2021-10-08] MEDS: BUDESONIDE/FORMETEROL FUMARATE 160/4.5 mcg INHALER IH SCH ×2 (10:12→21:33)
[2021-10-08] MEDS: EZETIMIBE 10 MG TABLET (FP) PO SCH (21:27)
[2021-10-09] MEDS: LEVOTHYROXINE NA 50 MCG TABLET (FP) PO SCH (06:40)
[2021-10-09] MEDS: INSULIN SLIDING SCALE (NOVOLOG) 1 VIAL SQ SCH ×4 (06:40→21:45)
[2021-10-09] MEDS: DOCUSATE SODIUM 100 MG CAPSULE (FP) PO SCH ×3 (06:40→21:45)
[2021-10-09] MEDS: ANASTROZOLE 1 MG TABLET PO SCH (09:19)
[2021-10-09] MEDS: LOSARTAN 50MG/HCTZ 12.5MG 1 TAB PO SCH (09:19)
[2021-10-09] MEDS: LORATADINE 10 MG TABLET PO SCH (09:19)
[2021-10-09] MEDS: metoPROLOL SUCCINATE 25 MG TAB.SR.24H (FP) PO SCH (09:19)
[2021-10-09] MEDS: ASPIRIN COATED 81 MG TABLET.EC PO SCH (09:19)
[2021-10-09] MEDS: HEPARIN NA (PORCINE) 5,000 UNITS/ML 1ML VIAL SQ SCH ×2 (09:19→21:46)
[2021-10-09] MEDS: BUDESONIDE/FORMETEROL FUMARATE 160/4.5 mcg INHALER IH SCH ×2 (09:20→21:48)
[2021-10-09] MEDS ORDERED: MEROPENEM 1 GM VIAL (RESTRICTED TO ID) IVPB ONE (15:39)
[2021-10-09] MEDS: MEROPENEM 1 GM in DEXTROSE 5%-WATER 100 ML IVPB SCH ×2 (15:42→18:41)
[2021-10-09] MEDS: ACETAMINOPHEN 325 MG TABLET (FP) PO PRN (21:45)
[2021-10-09] MEDS: EZETIMIBE 10 MG TABLET (FP) PO SCH (21:45)
[2021-10-10] MEDS: MEROPENEM 1 GM in DEXTROSE 5%-WATER 100 ML IVPB SCH ×3 (02:08→17:07)
[2021-10-10] MEDS: DOCUSATE SODIUM 100 MG CAPSULE (FP) PO SCH ×3 (05:59→21:56)
[2021-10-10] MEDS: LEVOTHYROXINE NA 50 MCG TABLET (FP) PO SCH (05:59)
[2021-10-10] MEDS: INSULIN SLIDING SCALE (NOVOLOG) 1 VIAL SQ SCH ×4 (06:00→22:10)
[2021-10-10] MEDS: ASPIRIN COATED 81 MG TABLET.EC PO SCH (09:20)
[2021-10-10] MEDS: ANASTROZOLE 1 MG TABLET PO SCH (09:20)
[2021-10-10] MEDS: metoPROLOL SUCCINATE 25 MG TAB.SR.24H (FP) PO SCH (09:20)
[2021-10-10] MEDS: LORATADINE 10 MG TABLET PO SCH (09:20)
[2021-10-10] MEDS: LOSARTAN 50MG/HCTZ 12.5MG 1 TAB PO SCH (09:20)
[2021-10-10] MEDS: BUDESONIDE/FORMETEROL FUMARATE 160/4.5 mcg INHALER IH SCH ×2 (09:34→21:57)
[2021-10-10] MEDS: ACETAMINOPHEN 325 MG TABLET (FP) PO PRN (17:07)
[2021-10-10] MEDS ORDERED: DEXTROSE 5%-0.45% SALINE 1,000 ML IV SCH (18:45)
[2021-10-10] MEDS: EZETIMIBE 10 MG TABLET (FP) PO SCH (21:57)
[2021-10-11 00:56] VITALS: RESP 20
[2021-10-11] MEDS: MEROPENEM 1 GM in DEXTROSE 5%-WATER 100 ML IVPB SCH (02:03)
[2021-10-11 04:55] VITALS: BP 117/61; PULSE 107; TEMP 99.3
[2021-10-11 08:22] LABS: EPI CELLS 20 /uL (0-25.1); HYALINE CASTS 0 /uL (0-3.1); URINE APPEARANCE CLEAR; URINE BACTERIA 38 /uL (0-1359); URINE BILIRUBIN NEGATIVE (NEGATIVE); URINE COLOR YELLOW; URINE GLUCOSE (UA) TRACE (NEGATIVE); URINE KETONE TRACE (NEGATIVE); URINE LEUK ESTERASE NEGATIVE (NEGATIVE); URINE NITRITE NEGATIVE (NEGATIVE); URINE PROTEIN 1+ (NEGATIVE); URINE RBC 23 /uL (0-23.9); URINE WBC 12 /uL (0-25.8)
[2021-10-11 12:24] LABS: YEAST NONE SEEN (NEGATIVE)
== END 2021-10-11 05:00 | disposition short-term general hospital (02) | DRG 187 ==
LOC: JER 11:44 → JERBED 14:15 → J6S 21:27 → J4W 09-27 13:56
PROVIDERS: ADMIT Internal Medicine; ATTEND Internal Medicine
PROC: 0W9B30Z Drainage of Left Pleural Cavity with Drainage Device, Percutaneous Approach (ICD-10-PCS; principal; 2021-09-26)
PROC: 0W2BX0Z Change Drainage Device in Left Pleural Cavity, External Approach (ICD-10-PCS; 2021-09-30)
PROC: 0WPBX0Z Removal of Drainage Device from Left Pleural Cavity, External Approach (ICD-10-PCS; 2021-10-07)
DX: J90 Pleural effusion, not elsewhere classified (principal); E87.1 Hypo-osmolality and hyponatremia; J98.11 Atelectasis; E87.2 Acidosis; J44.1 Chronic obstructive pulmonary disease with (acute) exacerbation; I10 Essential (primary) hypertension; C50.911 Malignant neoplasm of unspecified site of right female breast; E87.6 Hypokalemia; E78.5 Hyperlipidemia, unspecified; D64.9 Anemia, unspecified; R22.2 Localized swelling, mass and lump, trunk; I25.10 Atherosclerotic heart disease of native coronary artery without angina pectoris; R00.0 Tachycardia, unspecified; R50.9 Fever, unspecified; E11.9 Type 2 diabetes mellitus without complications; E03.9 Hypothyroidism, unspecified; Z85.038 Personal history of other malignant neoplasm of large intestine
CPT/HCPCS: 32557; 36415; 49423; 71045-TC-FY; 71046-TC-FY; 71250-TC; 80053; 81003; 82042; 82150; 82945; 82962; 83605; 83615; 83880; 83986; 84157; 84443; 84478; 84484; 85025; 85027; 85610; 86300; 86850; 86900; 86901; 87040; 87070; 87075; 87086; 87102; 87116; 87205; 87206; 87210; 88108; 88305-TC; 93005; 93010; 93306-TC; 97116-GP; 97162-GP; 99285-25; C1729; C1769; C1887; C9803-CS; J1644; U0003; U0005

== ENCOUNTER 2022-01-14 14:11 | Inpatient (IN) | payer OTHER ==
[2022-01-14 16:18] LABS: BASO % 0.3 % (0-2.0); EOS % 0.1 % (0-4.5); HEMATOCRIT 20.7 % (32.4-45.2); LYMPH % 7.7 % (8-40); MCH 28.3 pg (25.7-33.7); MCHC 31.9 g/dl (32.0-36.0); MEAN CELL VOLUME 88.6 fl (80-96); MEAN PLT VOLUME 7.3 fl (7.5-11.1); MONO % 3.3 % (3.8-10.2); NEUT % 88.6 % (42.8-82.8); PLATELET COUNT 523 10^3/uL (134-434); RBC 2.33 M/mm3 (3.60-5.2); RDW 20.7 % (11.6-15.6); WHITE BLOOD COUNT 11.5 K/mm3 (4.0-10.0)
[2022-01-14 16:26] LABS: HEMOGLOBIN 6.6 GM/dL (10.7-15.3)
[2022-01-14 16:37] LABS: INR 1.15 (0.83-1.09); PROTHROMBIN TIME (PATIENT) 13.3 SEC (9.7-13.0)
[2022-01-14 16:40] LABS: ACTIVATED PTT 29.1 SECONDS (25.2-36.5)
[2022-01-14 16:42] LABS: CALCIUM 8.7 mg/dL (8.5-10.1)
[2022-01-14 16:43] LABS: ALBUMIN 1.4 g/dl (3.4-5.0); BLOOD UREA NITROGEN 30.4 mg/dL (7-18)
[2022-01-14 16:46] LABS: CREATININE 1.3 mg/dL (0.55-1.3)
[2022-01-14 16:48] LABS: BILIRUBIN,TOTAL 0.4 mg/dL (0.2-1)
[2022-01-14] MEDS: NYSTATIN 100,000 UNIT/GM TOPICAL CREAM 15 GM TUBE TP SCH (23:15)
[2022-01-15 02:56] LABS: BASO % 0.3 % (0-2.0); EOS % 0.1 % (0-4.5); HEMATOCRIT 29.1 % (32.4-45.2); HEMOGLOBIN 9.4 GM/dL (10.7-15.3); LYMPH % 9.3 % (8-40); MCH 28.1 pg (25.7-33.7); MCHC 32.4 g/dl (32.0-36.0); MEAN CELL VOLUME 86.5 fl (80-96); MEAN PLT VOLUME 6.9 fl (7.5-11.1); MONO % 4.7 % (3.8-10.2); NEUT % 85.6 % (42.8-82.8); PLATELET COUNT 396 10^3/uL (134-434); RBC 3.36 M/mm3 (3.60-5.2); WHITE BLOOD COUNT 11.7 K/mm3 (4.0-10.0)
[2022-01-15] MEDS ORDERED: VANCOMYCIN 1 GM/200 ML PREMIX BAG (RESTRICTED TO ID ONLY) IVPB ONE (08:30)
[2022-01-15] MEDS ORDERED: LEVOTHYROXINE NA 50 MCG TABLET (FP) ONE (08:33)
[2022-01-15] MEDS ORDERED: sitaGLIPtin PHOSPHATE 50 MG TABLET ONE (08:33)
[2022-01-15] MEDS ORDERED: VANCOMYCIN/WATER FOR INJ (PEG) 1,000 MG/200 ML BAG IVPB ONE (08:34)
[2022-01-15] MEDS ORDERED: ACETAMINOPHEN INJECTION 100 ML IVPB ONE (08:34)
[2022-01-15] MEDS: sitaGLIPtin PHOSPHATE 50 MG TABLET PO SCH ×2 (08:46→18:53)
[2022-01-15] MEDS: ACETAMINOPHEN 1000 MG/100 ML BAG IVPB PRN ×2 (08:46→15:38)
[2022-01-15] MEDS: metFORMIN HCL 500 MG TABLET (FP) PO SCH ×2 (08:46→18:53)
[2022-01-15] MEDS: LEVOTHYROXINE NA 50 MCG TABLET (FP) PO SCH (08:46)
[2022-01-15] MEDS ORDERED: PATIENT'S OWN MEDICATION (NON-FORMULARY) (Sitagliptin Phos/Metformin Hcl [Janumet 50-1,000 PO SCH (10:00)
[2022-01-15] MEDS ORDERED: JARDIANCE 10 MG PO SCH (10:00)
[2022-01-15] MEDS ORDERED: ANASTROZOLE 1 MG TABLET PO SCH (10:00)
[2022-01-15] MEDS ORDERED: OLMESARTAN HCTZ PO SCH (10:00)
[2022-01-15] MEDS: POTASSIUM CHLORIDE 10 MEQ in SODIUM CHLORIDE 0.45% 1,000 ML IVPB SCH ×3 (10:13→22:54)
[2022-01-15 10:21] LABS: BASO % 0.3 % (0-2.0); EOS % 0.3 % (0-4.5); HEMOGLOBIN 10.6 GM/dL (10.7-15.3); MCH 28.2 pg (25.7-33.7); MCHC 32.1 g/dl (32.0-36.0); MEAN CELL VOLUME 87.7 fl (80-96); MEAN PLT VOLUME 7.1 fl (7.5-11.1); MONO % 3.5 % (3.8-10.2); NEUT % 87.9 % (42.8-82.8); PLATELET COUNT 449 10^3/uL (134-434); RBC 3.76 M/mm3 (3.60-5.2); RDW 16.3 % (11.6-15.6); WHITE BLOOD COUNT 12.5 K/mm3 (4.0-10.0)
[2022-01-15 10:56] LABS: BLOOD UREA NITROGEN 32.2 mg/dL (7-18)
[2022-01-15 11:01] LABS: CREATININE 1.2 mg/dL (0.55-1.3)
[2022-01-15 11:58] LABS: ALBUMIN 1.6 g/dl (3.4-5.0)
[2022-01-15 12:03] LABS: BILIRUBIN,TOTAL 0.6 mg/dL (0.2-1); TOT PROT 6.4 g/dl (6.4-8.2)
[2022-01-15 12:44] LABS: LACTIC ACID 2.7 mmol/L (0.4-2.0)
[2022-01-15] MEDS: PANTOPRAZOLE SODIUM 40 MG VIAL IVPUSH SCH ×2 (14:50→21:21)
[2022-01-15] MEDS: BUDESONIDE/FORMETEROL FUMARATE 160/4.5 mcg INHALER IH SCH ×2 (14:50→22:54)
[2022-01-15] MEDS: NYSTATIN 100,000 UNIT/GM TOPICAL CREAM 15 GM TUBE TP SCH ×2 (14:51→23:17)
[2022-01-15] MEDS ORDERED: ACETAMINOPHEN 325 MG TABLET (FP) PO ONE (19:54)
[2022-01-15] MEDS ORDERED: METOPROLOL TARTRATE 50 MG TABLET (FP) PO ONE (20:00)
[2022-01-15] MEDS ORDERED: ALBUTEROL SO4 0.083% IH SOL 2.5 MG/3 ML VIAL.NEB. NEB PRN (20:09)
[2022-01-15] MEDS: MIRTAZAPINE 15 MG TABLET (FP) PO SCH (21:21)
[2022-01-15] MEDS: COLLAGENASE CLOSTRIDIUM HIST. 30 GRAMS TUBE TP SCH (21:55)
[2022-01-15] MEDS: SILVER SULFADIAZINE 1% TOP CREAM 400 GM JAR TP SCH (21:56)
[2022-01-15] MEDS ORDERED: ROSUVASTATIN CA 10 MG TABLET PO SCH (22:00)
[2022-01-16] MEDS: POTASSIUM CHLORIDE 10 MEQ in SODIUM CHLORIDE 0.45% 1,000 ML IVPB SCH (03:43)
[2022-01-16] MEDS: LEVOTHYROXINE NA 50 MCG TABLET (FP) PO SCH (06:51)
[2022-01-16] MEDS ORDERED: ACETAMINOPHEN 1000 MG/100 ML BAG IVPB PRN (07:17)
[2022-01-16 08:18] LABS: BASO % 0.3 % (0-2.0); EOS % 0.1 % (0-4.5); HEMATOCRIT 26.9 % (32.4-45.2); HEMOGLOBIN 9.1 GM/dL (10.7-15.3); LYMPH % 9.1 % (8-40); MCH 29.4 pg (25.7-33.7); MCHC 33.7 g/dl (32.0-36.0); MEAN CELL VOLUME 87.3 fl (80-96); MEAN PLT VOLUME 6.8 fl (7.5-11.1); MONO % 3.6 % (3.8-10.2); NEUT % 86.9 % (42.8-82.8); PLATELET COUNT 315 10^3/uL (134-434); RBC 3.08 M/mm3 (3.60-5.2); RDW 16.9 % (11.6-15.6); WHITE BLOOD COUNT 10.1 K/mm3 (4.0-10.0)
[2022-01-16 09:00] LABS: BLOOD UREA NITROGEN 29.4 mg/dL (7-18); CALCIUM 7.9 mg/dL (8.5-10.1)
[2022-01-16] MEDS ORDERED: POTASSIUM CHLORIDE 10 MEQ in SODIUM CHLORIDE 0.45% 1,000 ML IVPB SCH (09:00)
[2022-01-16 09:03] LABS: CREATININE 1.1 mg/dL (0.55-1.3)
[2022-01-16 09:05] LABS: BILIRUBIN,TOTAL 0.8 mg/dL (0.2-1)
[2022-01-16 09:15] LABS: ALBUMIN 1.3 g/dl (3.4-5.0)
[2022-01-16] MEDS ORDERED: PATIENT'S OWN MEDICATION (NON-FORMULARY) (Jardiance 10 MG) PO SCH (10:00)
[2022-01-16] MEDS: NYSTATIN 100,000 UNIT/GM TOPICAL CREAM 15 GM TUBE TP SCH ×2 (10:01→22:10)
[2022-01-16] MEDS: ANASTROZOLE 1 MG TABLET PO SCH (10:01)
[2022-01-16] MEDS: COLLAGENASE CLOSTRIDIUM HIST. 30 GRAMS TUBE TP SCH (10:02)
[2022-01-16] MEDS: BUDESONIDE/FORMETEROL FUMARATE 160/4.5 mcg INHALER IH SCH ×2 (10:02→21:56)
[2022-01-16] MEDS: SILVER SULFADIAZINE 1% TOP CREAM 400 GM JAR TP SCH (10:02)
[2022-01-16] MEDS: PANTOPRAZOLE SODIUM 40 MG VIAL IVPUSH SCH ×2 (10:02→21:56)
[2022-01-16] MEDS: sitaGLIPtin PHOSPHATE 50 MG TABLET PO SCH ×2 (10:03→17:12)
[2022-01-16] MEDS: metFORMIN HCL 500 MG TABLET (FP) PO SCH ×2 (10:03→17:12)
[2022-01-16] MEDS: METOPROLOL TARTRATE 50 MG TABLET (FP) PO SCH ×2 (10:39→21:55)
[2022-01-16 12:18] VITALS: BMI 21.5
[2022-01-16] MEDS: AMINO ACIDS/PROTEIN HYDROLYS 30 ML LIQUID.PKT PO SCH (17:13)
[2022-01-16] MEDS: ROSUVASTATIN CA 10 MG TABLET PO SCH (21:55)
[2022-01-16] MEDS: MIRTAZAPINE 15 MG TABLET (FP) PO SCH (21:56)
[2022-01-17] MEDS: LEVOTHYROXINE NA 50 MCG TABLET (FP) PO SCH (06:58)
[2022-01-17 08:12] LABS: BASO % 0.2 % (0-2.0); EOS % 0.1 % (0-4.5); HEMATOCRIT 30.3 % (32.4-45.2); HEMOGLOBIN 9.8 GM/dL (10.7-15.3); LYMPH % 9.5 % (8-40); MCH 28.6 pg (25.7-33.7); MCHC 32.4 g/dl (32.0-36.0); MEAN CELL VOLUME 88.3 fl (80-96); MEAN PLT VOLUME 6.8 fl (7.5-11.1); NEUT % 86.2 % (42.8-82.8); PLATELET COUNT 337 10^3/uL (134-434); RBC 3.43 M/mm3 (3.60-5.2); RDW 17.2 % (11.6-15.6); WHITE BLOOD COUNT 10.9 K/mm3 (4.0-10.0)
[2022-01-17 08:31] LABS: ALBUMIN 1.4 g/dl (3.4-5.0); BLOOD UREA NITROGEN 23.4 mg/dL (7-18); CALCIUM 7.9 mg/dL (8.5-10.1)
[2022-01-17 08:35] LABS: CREATININE 0.7 mg/dL (0.55-1.3)
[2022-01-17 08:36] LABS: BILIRUBIN,TOTAL 0.7 mg/dL (0.2-1); TOT PROT 5.4 g/dl (6.4-8.2)
[2022-01-17] MEDS: AMINO ACIDS/PROTEIN HYDROLYS 30 ML LIQUID.PKT PO SCH ×2 (09:15→18:05)
[2022-01-17] MEDS: PANTOPRAZOLE SODIUM 40 MG VIAL IVPUSH SCH ×2 (09:15→22:51)
[2022-01-17] MEDS: ASCORBIC ACID 500 MG TABLET (FP) PO SCH (09:15)
[2022-01-17] MEDS: METOPROLOL TARTRATE 50 MG TABLET (FP) PO SCH ×2 (09:15→22:51)
[2022-01-17] MEDS: MULTIVITAMINS (DAILY MVI) TABLET (FP) PO SCH (09:15)
[2022-01-17] MEDS: NYSTATIN 100,000 UNIT/GM TOPICAL CREAM 15 GM TUBE TP SCH ×2 (09:16→22:53)
[2022-01-17] MEDS: COLLAGENASE CLOSTRIDIUM HIST. 30 GRAMS TUBE TP SCH (09:17)
[2022-01-17] MEDS: ANASTROZOLE 1 MG TABLET PO SCH (09:49)
[2022-01-17] MEDS: SILVER SULFADIAZINE 1% TOP CREAM 400 GM JAR TP SCH (09:49)
[2022-01-17] MEDS: BUDESONIDE/FORMETEROL FUMARATE 160/4.5 mcg INHALER IH SCH ×2 (13:54→22:54)
[2022-01-17] MEDS: sitaGLIPtin PHOSPHATE 50 MG TABLET PO SCH (18:11)
[2022-01-17] MEDS: metFORMIN HCL 500 MG TABLET (FP) PO SCH (18:15)
[2022-01-17] MEDS: ROSUVASTATIN CA 10 MG TABLET PO SCH (22:51)
[2022-01-17] MEDS: MIRTAZAPINE 15 MG TABLET (FP) PO SCH (22:51)
[2022-01-18] MEDS: sitaGLIPtin PHOSPHATE 50 MG TABLET PO SCH ×2 (06:33→17:24)
[2022-01-18] MEDS: LEVOTHYROXINE NA 50 MCG TABLET (FP) PO SCH (06:33)
[2022-01-18] MEDS: metFORMIN HCL 500 MG TABLET (FP) PO SCH ×2 (06:33→17:24)
[2022-01-18 08:11] LABS: BASO % 0.3 % (0-2.0); EOS % 0.1 % (0-4.5); HEMATOCRIT 31.8 % (32.4-45.2); HEMOGLOBIN 10.4 GM/dL (10.7-15.3); LYMPH % 9.9 % (8-40); MCH 28.7 pg (25.7-33.7); MCHC 32.7 g/dl (32.0-36.0); MEAN CELL VOLUME 87.6 fl (80-96); MEAN PLT VOLUME 6.8 fl (7.5-11.1); MONO % 3.7 % (3.8-10.2); PLATELET COUNT 341 10^3/uL (134-434); RBC 3.63 M/mm3 (3.60-5.2); RDW 17.1 % (11.6-15.6)
[2022-01-18 08:18] LABS: ALBUMIN 1.5 g/dl (3.4-5.0); CALCIUM 8.3 mg/dL (8.5-10.1)
[2022-01-18 08:19] LABS: BLOOD UREA NITROGEN 25.5 mg/dL (7-18)
[2022-01-18 08:21] LABS: CREATININE 0.8 mg/dL (0.55-1.3)
[2022-01-18 08:23] LABS: BILIRUBIN,TOTAL 0.5 mg/dL (0.2-1); TOT PROT 5.6 g/dl (6.4-8.2)
[2022-01-18] MEDS: AMINO ACIDS/PROTEIN HYDROLYS 30 ML LIQUID.PKT PO SCH ×2 (08:58→17:07)
[2022-01-18] MEDS: ASCORBIC ACID 500 MG TABLET (FP) PO SCH (09:01)
[2022-01-18] MEDS: MULTIVITAMINS (DAILY MVI) TABLET (FP) PO SCH (09:01)
[2022-01-18] MEDS: PANTOPRAZOLE SODIUM 40 MG VIAL IVPUSH SCH ×2 (09:01→21:15)
[2022-01-18] MEDS: BUDESONIDE/FORMETEROL FUMARATE 160/4.5 mcg INHALER IH SCH ×2 (09:02→21:15)
[2022-01-18] MEDS: NYSTATIN 100,000 UNIT/GM TOPICAL CREAM 15 GM TUBE TP SCH ×2 (09:04→21:16)
[2022-01-18] MEDS: METOPROLOL TARTRATE 50 MG TABLET (FP) PO SCH ×3 (09:04→21:15)
[2022-01-18] MEDS: SILVER SULFADIAZINE 1% TOP CREAM 400 GM JAR TP SCH (09:05)
[2022-01-18] MEDS: COLLAGENASE CLOSTRIDIUM HIST. 30 GRAMS TUBE TP SCH (09:07)
[2022-01-18] MEDS: ANASTROZOLE 1 MG TABLET PO SCH (09:37)
[2022-01-18] MEDS ORDERED: POTASSIUM CHLORIDE TABS 20 MEQ TABLET.ER (FP) PO ONE (16:15)
[2022-01-18] MEDS: ROSUVASTATIN CA 10 MG TABLET PO SCH (21:14)
[2022-01-18] MEDS: MIRTAZAPINE 15 MG TABLET (FP) PO SCH (21:15)
[2022-01-19] MEDS: metFORMIN HCL 500 MG TABLET (FP) PO SCH ×3 (06:30→19:41)
[2022-01-19] MEDS: LEVOTHYROXINE NA 50 MCG TABLET (FP) PO SCH (06:30)
[2022-01-19] MEDS: sitaGLIPtin PHOSPHATE 50 MG TABLET PO SCH ×3 (06:30→19:43)
[2022-01-19] MEDS: AMINO ACIDS/PROTEIN HYDROLYS 30 ML LIQUID.PKT PO SCH ×2 (08:35→19:43)
[2022-01-19] MEDS: NYSTATIN 100,000 UNIT/GM TOPICAL CREAM 15 GM TUBE TP SCH ×2 (10:07→21:22)
[2022-01-19] MEDS: SILVER SULFADIAZINE 1% TOP CREAM 400 GM JAR TP SCH (10:07)
[2022-01-19] MEDS: COLLAGENASE CLOSTRIDIUM HIST. 30 GRAMS TUBE TP SCH (10:07)
[2022-01-19] MEDS: METOPROLOL TARTRATE 50 MG TABLET (FP) PO SCH ×2 (10:35→21:22)
[2022-01-19] MEDS: MULTIVITAMINS (DAILY MVI) TABLET (FP) PO SCH (10:35)
[2022-01-19] MEDS: ASCORBIC ACID 500 MG TABLET (FP) PO SCH (10:35)
[2022-01-19] MEDS: PANTOPRAZOLE SODIUM 40 MG VIAL IVPUSH SCH ×2 (10:36→21:22)
[2022-01-19] MEDS: BUDESONIDE/FORMETEROL FUMARATE 160/4.5 mcg INHALER IH SCH ×2 (10:36→21:23)
[2022-01-19] MEDS: ANASTROZOLE 1 MG TABLET PO SCH (10:37)
[2022-01-19] MEDS ORDERED: POTASSIUM CHLORIDE 10 MEQ in SODIUM CHLORIDE 0.45% 1,000 ML IVPB SCH (14:00)
[2022-01-19] MEDS ORDERED: KCL 10 MEQ IVPB 10 MEQ/100 ML INFUS.BAG IVPB SCH (14:30)
[2022-01-19 15:45] LABS: ALBUMIN 1.5 g/dl (3.4-5.0); BILIRUBIN,TOTAL 0.2 mg/dL (0.2-1); CALCIUM 8.6 mg/dL (8.5-10.1); CREATININE 0.9 mg/dL (0.55-1.3); TOT PROT 5.8 g/dl (6.4-8.2)
[2022-01-19] MEDS: ROSUVASTATIN CA 10 MG TABLET PO SCH (21:22)
[2022-01-19] MEDS: MIRTAZAPINE 15 MG TABLET (FP) PO SCH (21:23)
[2022-01-20] MEDS: sitaGLIPtin PHOSPHATE 50 MG TABLET PO SCH ×2 (06:04→17:46)
[2022-01-20] MEDS: LEVOTHYROXINE NA 50 MCG TABLET (FP) PO SCH (06:04)
[2022-01-20] MEDS: metFORMIN HCL 500 MG TABLET (FP) PO SCH ×2 (06:04→17:47)
[2022-01-20] MEDS: AMINO ACIDS/PROTEIN HYDROLYS 30 ML LIQUID.PKT PO SCH ×2 (08:45→17:47)
[2022-01-20] MEDS: METOPROLOL TARTRATE 50 MG TABLET (FP) PO SCH ×2 (09:55→21:28)
[2022-01-20] MEDS: ASCORBIC ACID 500 MG TABLET (FP) PO SCH (09:55)
[2022-01-20] MEDS: PANTOPRAZOLE SODIUM 40 MG VIAL IVPUSH SCH ×2 (09:55→21:28)
[2022-01-20] MEDS: MULTIVITAMINS (DAILY MVI) TABLET (FP) PO SCH (09:55)
[2022-01-20] MEDS: ANASTROZOLE 1 MG TABLET PO SCH (09:56)
[2022-01-20] MEDS: BUDESONIDE/FORMETEROL FUMARATE 160/4.5 mcg INHALER IH SCH ×2 (09:57→21:29)
[2022-01-20] MEDS: NYSTATIN 100,000 UNIT/GM TOPICAL CREAM 15 GM TUBE TP SCH ×2 (10:55→21:29)
[2022-01-20] MEDS: COLLAGENASE CLOSTRIDIUM HIST. 30 GRAMS TUBE TP SCH (10:56)
[2022-01-20] MEDS: SILVER SULFADIAZINE 1% TOP CREAM 400 GM JAR TP SCH (10:56)
[2022-01-20] MEDS: MIRTAZAPINE 15 MG TABLET (FP) PO SCH (21:28)
[2022-01-20] MEDS: ROSUVASTATIN CA 10 MG TABLET PO SCH (21:28)
[2022-01-21] MEDS: metFORMIN HCL 500 MG TABLET (FP) PO SCH ×2 (06:35→17:23)
[2022-01-21] MEDS: sitaGLIPtin PHOSPHATE 50 MG TABLET PO SCH ×2 (06:36→17:23)
[2022-01-21] MEDS: LEVOTHYROXINE NA 50 MCG TABLET (FP) PO SCH (06:38)
[2022-01-21 07:19] LABS: HEMATOCRIT 30.6 % (32.4-45.2); MCH 28.9 pg (25.7-33.7); MCHC 32.8 g/dl (32.0-36.0); MEAN CELL VOLUME 88.3 fl (80-96); PLATELET COUNT 272 10^3/uL (134-434); RBC 3.46 M/mm3 (3.60-5.2); WHITE BLOOD COUNT 9.6 K/mm3 (4.0-10.0)
[2022-01-21 07:41] LABS: CALCIUM 8.9 mg/dL (8.5-10.1)
[2022-01-21 07:42] LABS: ALBUMIN 1.5 g/dl (3.4-5.0)
[2022-01-21 07:44] LABS: CREATININE 0.6 mg/dL (0.55-1.3)
[2022-01-21 07:46] LABS: BILIRUBIN,TOTAL 0.7 mg/dL (0.2-1); TOT PROT 5.8 g/dl (6.4-8.2)
[2022-01-21] MEDS: ANASTROZOLE 1 MG TABLET PO SCH (09:17)
[2022-01-21] MEDS: PANTOPRAZOLE SODIUM 40 MG VIAL IVPUSH SCH ×2 (09:17→22:16)
[2022-01-21] MEDS: AMINO ACIDS/PROTEIN HYDROLYS 30 ML LIQUID.PKT PO SCH ×3 (09:17→17:23)
[2022-01-21] MEDS: ASCORBIC ACID 500 MG TABLET (FP) PO SCH (09:18)
[2022-01-21] MEDS: SILVER SULFADIAZINE 1% TOP CREAM 400 GM JAR TP SCH (09:18)
[2022-01-21] MEDS: MULTIVITAMINS (DAILY MVI) TABLET (FP) PO SCH (09:18)
[2022-01-21] MEDS: METOPROLOL TARTRATE 50 MG TABLET (FP) PO SCH ×2 (09:18→22:16)
[2022-01-21] MEDS: BUDESONIDE/FORMETEROL FUMARATE 160/4.5 mcg INHALER IH SCH ×2 (09:19→22:18)
[2022-01-21] MEDS: NYSTATIN 100,000 UNIT/GM TOPICAL CREAM 15 GM TUBE TP SCH ×2 (10:45→22:17)
[2022-01-21] MEDS: COLLAGENASE CLOSTRIDIUM HIST. 30 GRAMS TUBE TP SCH (10:45)
[2022-01-21] MEDS: ROSUVASTATIN CA 10 MG TABLET PO SCH (22:16)
[2022-01-21] MEDS: MIRTAZAPINE 15 MG TABLET (FP) PO SCH (22:17)
[2022-01-22] MEDS: LEVOTHYROXINE NA 50 MCG TABLET (FP) PO SCH (06:34)
[2022-01-22] MEDS: metFORMIN HCL 500 MG TABLET (FP) PO SCH ×2 (06:35→16:41)
[2022-01-22] MEDS: sitaGLIPtin PHOSPHATE 50 MG TABLET PO SCH ×2 (06:35→16:41)
[2022-01-22] MEDS: AMINO ACIDS/PROTEIN HYDROLYS 30 ML LIQUID.PKT PO SCH ×3 (08:30→16:41)
[2022-01-22] MEDS: ANASTROZOLE 1 MG TABLET PO SCH (09:47)
[2022-01-22] MEDS: METOPROLOL TARTRATE 50 MG TABLET (FP) PO SCH ×2 (09:47→21:03)
[2022-01-22] MEDS: SILVER SULFADIAZINE 1% TOP CREAM 400 GM JAR TP SCH (09:48)
[2022-01-22] MEDS: BUDESONIDE/FORMETEROL FUMARATE 160/4.5 mcg INHALER IH SCH ×2 (09:48→21:05)
[2022-01-22] MEDS: NYSTATIN 100,000 UNIT/GM TOPICAL CREAM 15 GM TUBE TP SCH ×2 (09:48→21:04)
[2022-01-22] MEDS: PANTOPRAZOLE SODIUM 40 MG VIAL IVPUSH SCH ×2 (09:48→21:03)
[2022-01-22] MEDS: MULTIVITAMINS (DAILY MVI) TABLET (FP) PO SCH (09:49)
[2022-01-22] MEDS: COLLAGENASE CLOSTRIDIUM HIST. 30 GRAMS TUBE TP SCH (09:49)
[2022-01-22] MEDS: ASCORBIC ACID 500 MG TABLET (FP) PO SCH (09:49)
[2022-01-22 12:35] LABS: CHOLESTEROL 79 mg/dL (50-200); TRIGLYCERIDES 112 mg/dL (0-150)
[2022-01-22 12:36] LABS: LDL CHOLESTEROL (ONLY SJRH) 28 mg/dL (5-100)
[2022-01-22 12:38] LABS: HDL CHOLESTEROL 45 mg/dL (40-60)
[2022-01-22 18:32] VITALS: RESP 20
[2022-01-22] MEDS: MIRTAZAPINE 15 MG TABLET (FP) PO SCH (21:03)
[2022-01-22] MEDS: ROSUVASTATIN CA 10 MG TABLET PO SCH (21:03)
[2022-01-23] MEDS: sitaGLIPtin PHOSPHATE 50 MG TABLET PO SCH ×3 (06:03→17:49)
[2022-01-23] MEDS: metFORMIN HCL 500 MG TABLET (FP) PO SCH ×3 (06:03→17:49)
[2022-01-23] MEDS: LEVOTHYROXINE NA 50 MCG TABLET (FP) PO SCH (06:03)
[2022-01-23] MEDS: MULTIVITAMINS (DAILY MVI) TABLET (FP) PO SCH (11:55)
[2022-01-23] MEDS: ANASTROZOLE 1 MG TABLET PO SCH (11:55)
[2022-01-23] MEDS: ASCORBIC ACID 500 MG TABLET (FP) PO SCH (11:55)
[2022-01-23] MEDS: PANTOPRAZOLE SODIUM 40 MG VIAL IVPUSH SCH ×2 (11:56→23:01)
[2022-01-23] MEDS: METOPROLOL TARTRATE 50 MG TABLET (FP) PO SCH ×2 (11:56→22:59)
[2022-01-23] MEDS: NYSTATIN 100,000 UNIT/GM TOPICAL CREAM 15 GM TUBE TP SCH ×2 (11:56→23:00)
[2022-01-23] MEDS: AMINO ACIDS/PROTEIN HYDROLYS 30 ML LIQUID.PKT PO SCH ×4 (11:56→17:49)
[2022-01-23] MEDS: BUDESONIDE/FORMETEROL FUMARATE 160/4.5 mcg INHALER IH SCH ×2 (11:57→23:02)
[2022-01-23] MEDS: COLLAGENASE CLOSTRIDIUM HIST. 30 GRAMS TUBE TP SCH (11:57)
[2022-01-23] MEDS: SILVER SULFADIAZINE 1% TOP CREAM 400 GM JAR TP SCH (11:57)
[2022-01-23] MEDS: ROSUVASTATIN CA 10 MG TABLET PO SCH (22:58)
[2022-01-23] MEDS: MIRTAZAPINE 15 MG TABLET (FP) PO SCH (23:01)
[2022-01-24 04:51] VITALS: BP 75/42; PULSE 116; TEMP 95.7
== END 2022-01-24 09:48 | disposition expired | DRG 598 ==
LOC: JER 14:11 → JERBED 16:35 → J4W 01-15 14:18
PROVIDERS: ADMIT Internal Medicine; ATTEND Internal Medicine
PROC: 30233N1 Transfusion of Nonautologous Red Blood Cells into Peripheral Vein, Percutaneous Approach (ICD-10-PCS; principal; 2022-01-14)
DX: C50.912 Malignant neoplasm of unspecified site of left female breast (principal); C18.9 Malignant neoplasm of colon, unspecified; C79.9 Secondary malignant neoplasm of unspecified site; J98.11 Atelectasis; C78.02 Secondary malignant neoplasm of left lung; I31.39 Other pericardial effusion (noninflammatory); J90 Pleural effusion, not elsewhere classified; E87.20 Acidosis, unspecified; D64.81 Anemia due to antineoplastic chemotherapy; T45.1X5A Adverse effect of antineoplastic and immunosuppressive drugs, initial encounter; I10 Essential (primary) hypertension; J44.9 Chronic obstructive pulmonary disease, unspecified; E11.9 Type 2 diabetes mellitus without complications; L89.90 Pressure ulcer of unspecified site, unspecified stage; J45.909 Unspecified asthma, uncomplicated; E03.9 Hypothyroidism, unspecified; E78.5 Hyperlipidemia, unspecified; C50.919 Malignant neoplasm of unspecified site of unspecified female breast; D72.829 Elevated white blood cell count, unspecified
CPT/HCPCS: 36415; 36430; 71045-TC-FY; 71250-TC; 80048; 80053; 80061; 82272; 82607; 82728; 82747; 82962; 83036; 83540; 83550; 83605; 84443; 84484; 85014; 85025; 85027; 85045; 85379; 85610; 85730; 86850; 86900; 86901; 86922; 87040; 93005; 93010; 93306-TC; 93970-TC; 97162-GP; 99285-25; C9803-CS; P9058; U0003; U0005